=== PATIENT | female | born 1965 | race Caucasian/White ===

== ENCOUNTER 2018-05-19 08:03 | Emergency (ER) | payer BC, MEDICARE ==
[~2018-05-19] VITALS: Ht 170.2 cm; Wt 111.0 kg
[~2018-05-19 08:03] MED LIST: METH5TAB2 PO; OXYC10TA47 PO; POTA20TA6 PO; ROSU5TAB PO
[2018-05-19 08:05] VITALS: BP 137/91
[2018-05-19] MEDS ORDERED: RIVA20TA PO (08:14)
[2018-05-19] MEDS ORDERED: PREG200C PO (08:14)
[2018-05-19] MEDS ORDERED: KETOROLAC 30 MG/1 ML ONE (08:18)
[2018-05-19] MEDS ORDERED: CYCLOBENZAPRINE 10 MG TABLET ONE (08:18)
--- NOTE | 2018-05-19 08:24 | NUR ---
pt to XR via personal WC
[2018-05-19] MEDS ORDERED: CYCLOBENZAPRINE 10 MG TABLET PO SCH (08:30)
[2018-05-19] MEDS ORDERED: CYCLOBENZAPRINE 10 MG TABLET PO ONE (08:30)
[2018-05-19] MEDS ORDERED: KETOROLAC 30 MG/1 ML IM ONE (08:30)
--- NOTE | 2018-05-19 09:25 | NUR ---
Patient given discharge instructions and they have confirmed that they understand the instructions. Patient to DC desk via personal WC.
== END 2018-05-19 09:26 | disposition home or self-care (01) ==
LOC: ED 09:20
DX: S39.012A Strain of muscle, fascia and tendon of lower back, initial encounter (principal); Z87.891 Personal history of nicotine dependence; Z79.899 Other long term (current) drug therapy; Z86.718 Personal history of other venous thrombosis and embolism; Z89.511 Acquired absence of right leg below knee; X58.XXXA Exposure to other specified factors, initial encounter; Y93.89 Activity, other specified; Y92.89 Other specified places as the place of occurrence of the external cause; Y99.8 Other external cause status
CPT/HCPCS: 72110; 96372; 99283; J1885

== ENCOUNTER 2018-12-20 12:59 | Emergency (ER) | payer MEDICARE, MEDICAID ==
[~2018-12-20] VITALS: Ht 170.2 cm; Wt 90.9 kg
[~2018-12-20 12:59] MED LIST changes: +PREG200C PO; +RIVA20TA PO
--- NOTE | 2018-12-20 13:25 | NUR ---
RECEIVED BEDSIDE REPORT FROM AILEEN ISAAC PER REPORT PT HAVING HARD TIME BREATHING AND WAS NON COMPLIANT WITH HOME OXYGEN. PER REPORT FAMILY STATED THAT SHE WAS SMOKING AND DOING DRUGS OVER THE WEEKEND.
[2018-12-20] MEDS ORDERED: ALBUTEROL/IPRATROPIUM 2.5MG/0.5MG, 3 ML NPPB ONE (13:30)
[2018-12-20 13:50] VITALS: BP 110/80
[2018-12-20] MEDS ORDERED: ALBUTEROL/IPRATROPIUM 2.5MG/0.5MG, 3 ML ONE (13:54)
--- NOTE | 2018-12-20 14:05 | NUR ---
PT STATES "I HAVE A LUNG INFECTION. I KNEW I WAS SICK SO I TOOK SOME ANTIBIOTICS THAT I HAD AT HOME. I DIDN'T SEE A DR. FOR THEM, I WAS SICK SO I TOOK THEM." PT STATES SHE WEARS OXYGEN AT 4 LPM AT HOME. NO ACUTE DISTRESS NOTED. PT VSS. PT OXYGEN SATURATION 97% ON 4LPM
--- NOTE | 2018-12-20 14:16 | NUR ---
PT STATES "THE BREATHING TREATMENT HELPED ME A LOT." NO ACUTE DISTRESS NOTED.
[2018-12-20 14:17] LABS: ALANINE AMINOTRANSFERASE 42 U/L (12-78); ALBUMIN 3.2 g/dL (3.4-5.0); ANION GAP 7 mmol/L (5-15); CALCIUM 8.1 mg/dL (8.5-10.1); CHLORIDE 111 mmol/L (98-107); CREATININE 0.82 mg/dL (0.55-1.02)
[2018-12-20 14:19] LABS: ALKALINE PHOSPHATASE 99 U/L (45-117); BILIRUBIN,TOTAL 0.7 mg/dL (0.2-1.0); TOTAL PROTEIN 6.9 g/dL (6.4-8.2)
[2018-12-20 14:21] LABS: MEAN CORPUSCULAR HEMOGLOBIN 30.1 pg (27.0-34.8); MEAN CORPUSCULAR HGB CONC 33.6 g/dL (32.4-35.8); MEAN CORPUSCULAR VOLUME 89.4 fL (80-100); RED BLOOD COUNT 4.08 x10^6/uL (3.82-5.3); RED CELL DISTRIBUTION WIDTH 23.4 % (9.6-15.2)
[2018-12-20 14:33] LABS: BASOPHILS # (AUTO) 0.04 x10^3/uL (0-0.1); BASOPHILS % (AUTO) 1 % (0-1); EOSINOPHILS # (AUTO) 0.12 x10^3/uL (0-0.4); EOSINOPHILS % (AUTO) 4 % (1-7); LYMPHOCYTES # (AUTO) 1.55 x10^3/uL (1-3.4); LYMPHOCYTES % (AUTO) 52 % (22-44); MD SCAN; MEAN PLATELET VOLUME 7.7 fL (7.4-10.4); MONOCYTES # (AUTO) 0.32 x10^3/uL (0.2-0.8); MONOCYTES % (AUTO) 11 % (2-9); NEUTROPHILS # (AUTO) 0.94 x10^3/uL (1.8-6.8); NEUTROPHILS % (AUTO) 31 % (42-75); PLATELET COUNT 74 x10^3/uL (130-400)
--- NOTE | 2018-12-20 14:37 | NUR ---
PT ABLE TO TRANSFER SELF TO WHEELCHAIR. PT HAS RIGHT BKA. PT STATES "I DON'T NEED HELP USING THE RESTROOM."
--- NOTE | 2018-12-20 16:10 | NUR ---
LATE ENTRY FOR 1530 Addendum: 12/20/18 at 1610 by [email or web address] PT RESTING ON [employer]. PT REFUSING NIPB AT THIS TIME. NO ACUTE DISTRESS NOTED. PT LISTENING TO MUSIC ON IPAD
--- NOTE | 2018-12-20 16:11 | NUR ---
Patient/Caregiver given discharge instructions and they have confirmed that they understand the instructions. Patient ambulatory with steady gait. BROUGHT PT PERSONAL WHEELCHAIR. PT LEFT WITH ALL PERSONAL BELONGINGS.
== END 2018-12-20 16:13 | disposition home or self-care (01) ==
LOC: ED 16:00
DX: J44.1 Chronic obstructive pulmonary disease with (acute) exacerbation (principal); E11.9 Type 2 diabetes mellitus without complications; Z87.891 Personal history of nicotine dependence; Z89.511 Acquired absence of right leg below knee
CPT/HCPCS: 36415; 71045; 80053; 84145; 85025; 93005; 94640; 99284; J7512